=== PATIENT | male | born 1945 | race Caucasian/White ===

== ENCOUNTER 2025-08-20 14:46 | Emergency (ER) | payer MEDICARE, BC ==
[2025-08-20] MEDS: Fluorescein 1 MG Ophth Strip EYELF ONE (16:42)
== END 2025-08-20 16:38 | disposition home or self-care (01) ==
LOC: JD.ED 14:46
DX: S05.02XA Injury of conjunctiva and corneal abrasion without foreign body, left eye, initial encounter (principal); H11.32 Conjunctival hemorrhage, left eye; X58.XXXA Exposure to other specified factors, initial encounter
CPT/HCPCS: 99283; A9270; J3490